=== PATIENT | male | born 1960 | race Caucasian/White ===

== ENCOUNTER → 2019-06-04 09:15 | Outpatient (BNVA) | payer MEDICAID, SELFPAY | PROVIDERS: Family Provider Nurse Practitioner Family; PCP Nurse Practitioner Family; Visit Provider Anesthesiology | DX: M47.817 Spondylosis without myelopathy or radiculopathy, lumbosacral region (principal); M79.651 Pain in right thigh; M79.652 Pain in left thigh; F17.220 Nicotine dependence, chewing tobacco, uncomplicated; Z79.891 Long term (current) use of opiate analgesic; Z71.6 Tobacco abuse counseling | CPT/HCPCS: 99214 ==

== ENCOUNTER → 2019-08-08 00:01 | Outpatient (BNVA) | payer MEDICAID, SELFPAY | PROVIDERS: Family Provider Nurse Practitioner Family; PCP Nurse Practitioner Family; Visit Provider Nurse Practitioner Family | DX: E11.9 Type 2 diabetes mellitus without complications (principal); I10 Essential (primary) hypertension; E78.5 Hyperlipidemia, unspecified; Z12.5 Encounter for screening for malignant neoplasm of prostate; K21.9 Gastro-esophageal reflux disease without esophagitis; E55.9 Vitamin D deficiency, unspecified; E78.2 Mixed hyperlipidemia; M19.90 Unspecified osteoarthritis, unspecified site; M17.0 Bilateral primary osteoarthritis of knee; M1A.9XX0 Chronic gout, unspecified, without tophus (tophi) | CPT/HCPCS: 80053; 80061; 81001; 82306; 83036; 84443; 84550; 85025; G0103 ==

== ENCOUNTER → 2019-09-04 11:09 | Outpatient (BNVA) | payer MEDICAID, SELFPAY | PROVIDERS: Family Provider Nurse Practitioner Family; PCP Nurse Practitioner Family; Visit Provider Nurse Practitioner Family | DX: R94.4 Abnormal results of kidney function studies (principal); S30.861A Insect bite (nonvenomous) of abdominal wall, initial encounter; W57.XXXA Bitten or stung by nonvenomous insect and other nonvenomous arthropods, initial encounter; E11.9 Type 2 diabetes mellitus without complications | CPT/HCPCS: 80053; 85007; 85027 ==

== ENCOUNTER → 2019-09-16 09:11 | Outpatient (BNVA) | payer MEDICAID, SELFPAY | PROVIDERS: Family Provider Nurse Practitioner Family; PCP Nurse Practitioner Family; Visit Provider Nurse Practitioner | DX: M47.817 Spondylosis without myelopathy or radiculopathy, lumbosacral region (principal); M54.9 Dorsalgia, unspecified; F17.220 Nicotine dependence, chewing tobacco, uncomplicated; Z79.891 Long term (current) use of opiate analgesic | CPT/HCPCS: 99213 ==

== ENCOUNTER → 2019-10-06 12:02 | Outpatient (BNVA) | payer MEDICAID, SELFPAY | PROVIDERS: Family Provider Nurse Practitioner Family; PCP Nurse Practitioner Family; Visit Provider Nurse Practitioner Family | DX: R53.83 Other fatigue (principal); E11.9 Type 2 diabetes mellitus without complications | CPT/HCPCS: 80053; 82607; 82728; 84403; 85025 ==

== ENCOUNTER → 2019-11-28 08:34 | Outpatient (BNVA) | payer MEDICAID, SELFPAY | PROVIDERS: Family Provider Nurse Practitioner Family; PCP Nurse Practitioner Family; Visit Provider Nurse Practitioner | DX: M47.817 Spondylosis without myelopathy or radiculopathy, lumbosacral region (principal); M54.9 Dorsalgia, unspecified; M17.0 Bilateral primary osteoarthritis of knee; F17.220 Nicotine dependence, chewing tobacco, uncomplicated; Z79.891 Long term (current) use of opiate analgesic; Z71.6 Tobacco abuse counseling | CPT/HCPCS: 99213; 99214 ==

== ENCOUNTER → 2020-01-27 08:22 | Outpatient (BNVA) | payer MEDICAID, SELFPAY | PROVIDERS: Family Provider Nurse Practitioner Family; PCP Nurse Practitioner Family; Visit Provider Anesthesiology | DX: G89.29 Other chronic pain (principal); M47.817 Spondylosis without myelopathy or radiculopathy, lumbosacral region; M54.9 Dorsalgia, unspecified; F17.220 Nicotine dependence, chewing tobacco, uncomplicated; Z79.891 Long term (current) use of opiate analgesic; Z71.6 Tobacco abuse counseling | CPT/HCPCS: 99214 ==

== ENCOUNTER → 2020-02-04 10:39 | Outpatient (BNVA) | payer MEDICAID, SELFPAY | PROVIDERS: Family Provider Nurse Practitioner Family; PCP Nurse Practitioner Family; Visit Provider Nurse Practitioner Family | DX: E11.9 Type 2 diabetes mellitus without complications (principal); D51.8 Other vitamin B12 deficiency anemias | CPT/HCPCS: 80053; 82607; 82746; 83036 ==

== ENCOUNTER → 2020-03-23 10:26 | Outpatient (BNVA) | payer MEDICAID, SELFPAY | PROVIDERS: Family Provider Nurse Practitioner Family; PCP Nurse Practitioner Family; Visit Provider Nurse Practitioner | DX: M47.817 Spondylosis without myelopathy or radiculopathy, lumbosacral region (principal); M17.0 Bilateral primary osteoarthritis of knee; F17.220 Nicotine dependence, chewing tobacco, uncomplicated; Z79.891 Long term (current) use of opiate analgesic | CPT/HCPCS: 99213 ==

== ENCOUNTER → 2020-05-21 10:34 | Outpatient (BNVA) | payer MEDICAID, SELFPAY | PROVIDERS: Family Provider Nurse Practitioner Family; PCP Nurse Practitioner Family; Visit Provider Nurse Practitioner | DX: M47.817 Spondylosis without myelopathy or radiculopathy, lumbosacral region (principal); M54.9 Dorsalgia, unspecified; M17.0 Bilateral primary osteoarthritis of knee; F17.220 Nicotine dependence, chewing tobacco, uncomplicated; Z79.891 Long term (current) use of opiate analgesic; Z71.6 Tobacco abuse counseling | CPT/HCPCS: 99213; 99214 ==

== ENCOUNTER → 2020-07-23 10:12 | Outpatient (BNVA) | payer MEDICAID, SELFPAY | PROVIDERS: Family Provider Nurse Practitioner Family; PCP Nurse Practitioner Family; Visit Provider Anesthesiology | DX: M47.817 Spondylosis without myelopathy or radiculopathy, lumbosacral region (principal); M54.9 Dorsalgia, unspecified; F17.220 Nicotine dependence, chewing tobacco, uncomplicated; Z79.891 Long term (current) use of opiate analgesic | CPT/HCPCS: 99213 ==

== ENCOUNTER → 2020-09-21 10:28 | Outpatient (BNVA) | payer MEDICAID, SELFPAY | PROVIDERS: Family Provider Nurse Practitioner Family; PCP Nurse Practitioner Family; Visit Provider Anesthesiology | DX: M47.817 Spondylosis without myelopathy or radiculopathy, lumbosacral region (principal); M54.9 Dorsalgia, unspecified; F17.220 Nicotine dependence, chewing tobacco, uncomplicated; Z79.891 Long term (current) use of opiate analgesic | CPT/HCPCS: 99213 ==

== ENCOUNTER → 2020-11-03 10:37 | Outpatient (BNVA) | payer MEDICAID, SELFPAY | PROVIDERS: Family Provider Nurse Practitioner Family; PCP Nurse Practitioner Family; Visit Provider Nurse Practitioner Family | DX: I10 Essential (primary) hypertension (principal); D51.8 Other vitamin B12 deficiency anemias; M10.9 Gout, unspecified; E11.9 Type 2 diabetes mellitus without complications; E55.9 Vitamin D deficiency, unspecified; S30.861A Insect bite (nonvenomous) of abdominal wall, initial encounter; W57.XXXA Bitten or stung by nonvenomous insect and other nonvenomous arthropods, initial encounter; R94.4 Abnormal results of kidney function studies; Z13.6 Encounter for screening for cardiovascular disorders | CPT/HCPCS: 80053; 80061; 81003; 82043; 82306; 82607; 83036; 84443; 84550; 85025 ==

== ENCOUNTER → 2020-11-17 09:08 | Outpatient (BNVA) | payer MEDICAID, SELFPAY | PROVIDERS: Family Provider Nurse Practitioner Family; PCP Nurse Practitioner Family; Visit Provider Anesthesiology | DX: M47.817 Spondylosis without myelopathy or radiculopathy, lumbosacral region (principal); Z79.891 Long term (current) use of opiate analgesic | CPT/HCPCS: 99213 ==

== ENCOUNTER → 2021-01-19 08:56 | Outpatient (BNVA) | payer MEDICAID, SELFPAY | PROVIDERS: Family Provider Nurse Practitioner Family; PCP Nurse Practitioner Family; Visit Provider Anesthesiology | DX: M47.817 Spondylosis without myelopathy or radiculopathy, lumbosacral region (principal); F17.220 Nicotine dependence, chewing tobacco, uncomplicated; Z79.891 Long term (current) use of opiate analgesic | CPT/HCPCS: 99213 ==

== ENCOUNTER → 2021-03-16 09:11 | Outpatient (BNVA) | payer MEDICAID, SELFPAY | PROVIDERS: Family Provider Nurse Practitioner Family; PCP Nurse Practitioner Family; Visit Provider Anesthesiology | DX: Z02.89 Encounter for other administrative examinations (principal); M47.817 Spondylosis without myelopathy or radiculopathy, lumbosacral region; Z79.891 Long term (current) use of opiate analgesic; F17.220 Nicotine dependence, chewing tobacco, uncomplicated; Z71.6 Tobacco abuse counseling | CPT/HCPCS: 99214 ==

== ENCOUNTER → 2021-05-24 09:14 | Outpatient (BNVA) | payer MEDICAID, SELFPAY | PROVIDERS: Family Provider Nurse Practitioner Family; PCP Nurse Practitioner Family; Visit Provider Anesthesiology | DX: M47.817 Spondylosis without myelopathy or radiculopathy, lumbosacral region (principal); F17.220 Nicotine dependence, chewing tobacco, uncomplicated; Z79.891 Long term (current) use of opiate analgesic; Z71.6 Tobacco abuse counseling | CPT/HCPCS: 99213 ==

== ENCOUNTER → 2021-09-06 11:07 | Outpatient (BNVA) | payer MEDICAID, SELFPAY | PROVIDERS: Family Provider Nurse Practitioner Family; PCP Nurse Practitioner Family; Visit Provider Nurse Practitioner | DX: Z13.6 Encounter for screening for cardiovascular disorders (principal); E11.9 Type 2 diabetes mellitus without complications; I10 Essential (primary) hypertension; M10.9 Gout, unspecified; M17.0 Bilateral primary osteoarthritis of knee; E55.9 Vitamin D deficiency, unspecified; E78.2 Mixed hyperlipidemia; K21.9 Gastro-esophageal reflux disease without esophagitis | CPT/HCPCS: 80053; 80061; 83036; 84443; 85025 ==

== ENCOUNTER → 2023-03-22 11:09 | Outpatient (BNVA) | payer MEDICAID, SELFPAY | PROVIDERS: Family Provider Nurse Practitioner Family; PCP Nurse Practitioner Family; Visit Provider Nurse Practitioner Family | DX: M67.919 Unspecified disorder of synovium and tendon, unspecified shoulder (principal); M19.012 Primary osteoarthritis, left shoulder; M25.819 Other specified joint disorders, unspecified shoulder | CPT/HCPCS: 73030 ==

== ENCOUNTER → 2023-04-26 10:16 | Outpatient (BNVA) | payer MEDICAID, SELFPAY | PROVIDERS: Family Provider Nurse Practitioner Family; PCP Nurse Practitioner Family; Visit Provider Nurse Practitioner Family | DX: I10 Essential (primary) hypertension (principal); E11.9 Type 2 diabetes mellitus without complications; E55.9 Vitamin D deficiency, unspecified; Z13.6 Encounter for screening for cardiovascular disorders; L02.91 Cutaneous abscess, unspecified; L02.212 Cutaneous abscess of back [any part, except buttock and flank] | CPT/HCPCS: 80053; 80061; 81003; 82306; 83036; 84443; 85025; G0103 ==

== ENCOUNTER → 2023-05-01 13:27 | Outpatient (BNVA) | payer MEDICAID, SELFPAY | PROVIDERS: Family Provider Nurse Practitioner Family; PCP Nurse Practitioner Family; Visit Provider Nurse Practitioner Family | DX: I10 Essential (primary) hypertension (principal); E11.9 Type 2 diabetes mellitus without complications; E55.9 Vitamin D deficiency, unspecified; Z13.6 Encounter for screening for cardiovascular disorders | CPT/HCPCS: 81003; 87070; 87075; 87205 ==

== ENCOUNTER → 2023-05-03 13:38 | Outpatient (BNVA) | payer MEDICAID, SELFPAY | PROVIDERS: Family Provider Nurse Practitioner Family; PCP Nurse Practitioner Family; Visit Provider Nurse Practitioner Family | DX: L02.91 Cutaneous abscess, unspecified (principal) | CPT/HCPCS: 87070; 87075; 87205 ==

== ENCOUNTER → 2025-01-23 09:28 | Outpatient (BNVA) | payer MEDICAID, SELFPAY | PROVIDERS: Family Provider Nurse Practitioner Family; PCP Nurse Practitioner Family; Visit Provider Nurse Practitioner Family | DX: M43.06 Spondylolysis, lumbar region (principal); Z90.49 Acquired absence of other specified parts of digestive tract | CPT/HCPCS: 72114 ==

== ENCOUNTER → 2025-02-12 15:11 | Outpatient (BNVA) | payer MEDICAID, SELFPAY | PROVIDERS: Family Provider Nurse Practitioner Family; PCP Nurse Practitioner Family; Visit Provider Nurse Practitioner Family | DX: E11.9 Type 2 diabetes mellitus without complications (principal); I10 Essential (primary) hypertension; E55.9 Vitamin D deficiency, unspecified; K21.9 Gastro-esophageal reflux disease without esophagitis; R53.83 Other fatigue; M10.9 Gout, unspecified | CPT/HCPCS: 80053; 80061; 81003; 82306; 82607; 83036; 83921; 84443; 84550; 85025; G0103 ==

== ENCOUNTER → 2025-02-20 15:46 | Outpatient (BNVA) | payer MEDICAID, SELFPAY | PROVIDERS: Family Provider Nurse Practitioner Family; PCP Nurse Practitioner Family; Visit Provider Nurse Practitioner Family | DX: M47.812 Spondylosis without myelopathy or radiculopathy, cervical region (principal); G56.92 Unspecified mononeuropathy of left upper limb | CPT/HCPCS: 72052 ==

== ENCOUNTER 2025-03-10 06:53 | Outpatient (CLI) | payer MEDICAID, SELFPAY ==
--- NOTE | 2025-03-10 07:15 | MR_ITS ---
WS: [id number] MRI CERVICAL SPINE NONCONTRAST TECHNIQUE: Sagittal T1, T2 and STIR imaging. Axial T2, gradient, and fiesta imaging. CLINICAL INFORMATION: M47.812 - Spondylosis without myelopathy or radiculopathy... COMPARISON: None. FINDINGS: Straightening of the normal cervical lordosis. Chronic lacunar infarcts in the padmini partially visualized. Disc bulging worse at C5-6. C2-C3: Mild LEFT bony foraminal narrowing. Mild facet arthropathy. C3-C4: Moderate facet arthropathy. Mild bilateral bony foraminal narrowing. C4-C5: Moderate facet arthropathy. Mild LEFT bony foraminal narrowing. C5-C6: Small RIGHT paracentral disc osteophyte protrusion with mild central canal stenosis. Moderate to severe LEFT and mild RIGHT bony foraminal narrowing. Moderate facet arthropathy. C6-C7: Mild LEFT greater than RIGHT bony foraminal narrowing. Spinal canal is patent. C7-T1: Normal. Visualized brain stem structures: Normal. Prevertebral soft tissues: Normal. Retention cyst RIGHT maxillary sinus. MR/MR cervical spin wo con* [id number] IMPRESSION: 1. Straightening of the normal cervical lordosis. 2. RIGHT paracentral shallow disc osteophyte protrusion C5-6 with mild central canal stenosis and slight indentation on the ventral cervical cord. 3. Moderate to severe LEFT C5-6 bony foraminal narrowing
== END 2025-03-10 06:54 | disposition home or self-care (01) ==
PROVIDERS: Family Provider Nurse Practitioner Family; PCP Nurse Practitioner Family; Visit Provider Nurse Practitioner Family
DX: M47.812 Spondylosis without myelopathy or radiculopathy, cervical region (principal); M50.30 Other cervical disc degeneration, unspecified cervical region; G56.92 Unspecified mononeuropathy of left upper limb; M48.02 Spinal stenosis, cervical region; M25.78 Osteophyte, vertebrae; M50.222 Other cervical disc displacement at C5-C6 level
CPT/HCPCS: 72141

== ENCOUNTER → 2025-04-07 14:23 | Outpatient (BNVA) | payer MEDICAID, SELFPAY | PROVIDERS: Family Provider Nurse Practitioner Family; PCP Nurse Practitioner Family; Visit Provider Orthopaedic Surgery | DX: M50.322 Other cervical disc degeneration at C5-C6 level (principal); M48.02 Spinal stenosis, cervical region | CPT/HCPCS: 72050; 99203 ==